=== PATIENT | male | born 1950 | race Caucasian/White ===

== ENCOUNTER 2017-03-17 12:00 | Emergency (ER) | payer MEDICARE ==
[2017-03-17] MEDS ORDERED: Fluorescein Opthalmic Strip ONE (12:54)
== END 2017-03-17 13:38 | disposition home or self-care (01) ==
LOC: NAV ERS 12:00
DX: T15.91XA Foreign body on external eye, part unspecified, right eye, initial encounter (principal); I10 Essential (primary) hypertension; E78.5 Hyperlipidemia, unspecified; Z87.891 Personal history of nicotine dependence; Z79.899 Other long term (current) drug therapy
CPT/HCPCS: 65220; 99283